=== PATIENT | male | born 1955 | race Caucasian/White ===

== ENCOUNTER 2021-09-20 07:57 | Day surgery (SDC) | payer MEDICAID ==
[~2021-09-20] VITALS: Ht 182.9 cm; Wt 63.5 kg
[~2021-09-20 07:57] MED LIST: CRESTOR20 MG PO; LIPITOR20 M1 PO
[2021-09-20 11:07] VITALS: BP 115/69
== END 2021-09-20 10:55 | disposition home or self-care (01) ==
LOC: ENDO 07:57 → ORM 09:15 → ENDO 10:55
PROVIDERS: ATTEND Surgery
DX: Z12.11 Encounter for screening for malignant neoplasm of colon (principal); D12.0 Benign neoplasm of cecum; K64.8 Other hemorrhoids; E78.5 Hyperlipidemia, unspecified; F17.210 Nicotine dependence, cigarettes, uncomplicated; Z86.010 Personal history of colon polyps

== ENCOUNTER 2022-07-20 08:01 | Day surgery (SDC) | payer MEDICARE, MEDICAID ==
[~2022-07-20] VITALS: Ht 205.7 cm; Wt 59.4 kg
[~2022-07-20 08:01] MED LIST changes: +PAROXETINE10 MG PO
[2022-07-20] MEDS ORDERED: OMEPRAZOLE20 MG PO (09:40)
[2022-07-20 10:30] VITALS: BP 146/93
== END 2022-07-20 10:28 | disposition home or self-care (01) ==
LOC: ENDO 08:01 → ORM 09:00 → ENDO 09:00
PROVIDERS: ATTEND Surgery
PROC: 0DB98ZX Excision of Duodenum, Via Natural or Artificial Opening Endoscopic, Diagnostic (ICD-10-PCS; principal; 2022-07-20)
DX: K29.80 Duodenitis without bleeding (principal); K44.9 Diaphragmatic hernia without obstruction or gangrene; E78.5 Hyperlipidemia, unspecified; R59.1 Generalized enlarged lymph nodes; F17.210 Nicotine dependence, cigarettes, uncomplicated

== ENCOUNTER 2023-02-17 19:11 | Emergency (ER) | payer MEDICARE, MEDICAID ==
[~2023-02-17 19:11] MED LIST changes: +OMEPRAZOLE20 MG PO
== END 2023-02-17 20:08 | disposition left against medical advice (07) ==
LOC: ED 19:11 → LWOBS 19:15
DX: Z53.21 Procedure and treatment not carried out due to patient leaving prior to being seen by health care provider (principal)

== ENCOUNTER 2023-02-18 08:42 | Emergency (ER) | payer MEDICARE, MEDICAID ==
[~2023-02-18] VITALS: Ht 182.9 cm; Wt 61.2 kg
[2023-02-18 08:50] VITALS: BP 138/76
[2023-02-18 09:00] VITALS: BP 149/79
[2023-02-18 10:18] VITALS: BP 147/72
[2023-02-18 12:00] VITALS: BP 147/72
== END 2023-02-18 12:05 | disposition home or self-care (01) ==
LOC: ED 08:42
DX: K59.00 Constipation, unspecified (principal); F17.200 Nicotine dependence, unspecified, uncomplicated

== ENCOUNTER 2023-02-21 21:59 | Emergency (ER) | payer MEDICARE, MEDICAID ==
[~2023-02-21] VITALS: Ht 182.9 cm; Wt 57.0 kg
[2023-02-22 01:00] VITALS: BP 138/70
== END 2023-02-22 01:30 | disposition home or self-care (01) ==
LOC: ED 21:59
DX: K59.00 Constipation, unspecified (principal); F17.200 Nicotine dependence, unspecified, uncomplicated